=== PATIENT | male | born 1975 | race Caucasian/White ===

== ENCOUNTER 2016-08-16 14:00 | Emergency (ER) | payer SELFPAY | END 2016-08-16 15:03 | disposition home or self-care (01) | LOC: ER 14:00 | DX: L03.317 Cellulitis of buttock (principal); F17.210 Nicotine dependence, cigarettes, uncomplicated; W57.XXXA Bitten or stung by nonvenomous insect and other nonvenomous arthropods, initial encounter | CPT/HCPCS: 90471 ==

== ENCOUNTER 2016-09-28 21:35 | Emergency (ER) | payer SELFPAY | END 2016-09-28 22:37 | disposition home or self-care (01) | LOC: ER 21:35 | DX: J11.1 Influenza due to unidentified influenza virus with other respiratory manifestations (principal); F17.210 Nicotine dependence, cigarettes, uncomplicated | CPT/HCPCS: 87502 ==